=== PATIENT | female | born 1960 | race Caucasian/White ===

== ENCOUNTER 2025-04-28 10:33 | Outpatient (CLI) | payer MEDICARE, BC | END 2025-04-28 10:34 | disposition home or self-care (01) | LOC: SCSMRI 10:33 | PROVIDERS: ATTEND Orthopaedic Surgery | DX: M75.101 Unspecified rotator cuff tear or rupture of right shoulder, not specified as traumatic (principal); M19.011 Primary osteoarthritis, right shoulder ==

== ENCOUNTER 2025-06-26 13:51 | Outpatient (CLI) | payer BC ==
[2025-06-26 15:34] LABS: #Basophils Less than 0.03 10x3/uL (0.0-0.2); #Eosinophils 0.06 10x3/uL (0.0-0.7); #Monocytes 0.40 10x3/uL (0.11-0.59); #Neutrophils 2.97 10x3/uL (1.40-6.50); %Basophils 0.4 % (0.0-1.0); %Eosinophils 1.2 % (0.0-10.0); %Lymphocytes 29.1 % (21.0-51.0); %Monocytes 8.2 % (0.0-10.0); %Neutrophils 60.9 % (42.0-75.0); Hematocrit 43.8 % (36.0-47.0); Hemoglobin 14.0 g/dL (12.0-16.0); Mean Corpuscular Hemoglobin 29.2 pg (27.0-31.0); Mean Corpuscular Volume 91.4 fL (78.0-98.0); Platelet Count 234 10x3/uL (130-400); Red Blood Cell (RBC) Count 4.79 mill/uL (4.20-5.40); White Blood Cell (WBC) Count 4.88 10x3/uL (4.8-10.8)
[2025-06-26 15:55] LABS: ALT (SGPT) 12 U/L (Less than 34); AST (SGOT) 23 U/L (11-34); Albumin 4.1 g/dL (3.1-4.5); Alkaline Phosphatase 65 U/L (40-110); Anion Gap 9 mmol/L (10-20); BUN (Urea Nitrogen) 14 mg/dL (9.8-20.1); Bilirubin, Total 1.4 mg/dL (0.3-1.2); Calc. Creatinine Clearance 0 mL/min (70-130); Calcium 9.6 mg/dL (7.8-10.44); Carbon Dioxide 25 mmol/L (23-31); Chloride 109 mmol/L (98-107); Globulin 2.9 g/dL (2.4-3.5); Glucose 104 mg/dL (80-115); Potassium 4.1 mmol/L (3.5-5.1); Sodium 139 mmol/L (136-145)
[2025-06-26 16:02] LABS: INR-International Normal Ratio 1.0; Prothrombin Time 13.8 sec (12.0-14.7)
== END 2025-06-26 13:52 | disposition home or self-care (01) ==
LOC: LABBT 13:51
PROVIDERS: ATTEND Orthopaedic Surgery
DX: Z01.818 Encounter for other preprocedural examination (principal); M19.011 Primary osteoarthritis, right shoulder
CPT/HCPCS: 80053; 85025; 85610; 87081; 93005; 93010

== ENCOUNTER 2025-07-03 07:12 | Observation (INO) | payer MEDICARE, BC ==
[2025-06-26 14:09] VITALS: BMI 29.9
[2025-07-03] MEDS ORDERED: Ropivacaine 0.5% HCl/PF (150 MG/30 ML VIAL) ONE (08:43)
[2025-07-03] MEDS ORDERED: Ropivacaine 0.2% HCl/PF 20 ML ONE (08:43)
[2025-07-03] MEDS ORDERED: CEFAZOLIN 2 GM VIAL ONE (09:12)
[2025-07-03] MEDS ORDERED: Tranexamic Acid 1,000 MG/10 ML VIAL ONE (09:12)
[2025-07-03] MEDS ORDERED: Vancomycin HCl 1.5 GM VIAL ONE (09:13)
[2025-07-03] MEDS ORDERED: Famotidine/PF 20 mg/2ml Vial ONE (09:26)
[2025-07-03] MEDS ORDERED: Lidocaine 4% PF 5 ML AMP ONE ×2 (09:30→09:31)
[2025-07-03] MEDS ORDERED: Rocuronium Bromide 10 MG/ML (10ML VIAL) ONE (09:47)
[2025-07-03] MEDS ORDERED: Lidocaine 1% PF 5 ML VIAL ONE (09:47)
[2025-07-03] MEDS ORDERED: PROPOFOL 200 MG/20 ML VIAL ONE (09:47)
[2025-07-03] MEDS ORDERED: PHENYLEPHRINE-NS 100 MCG/ML 10 ML SYRINGE ONE (10:01)
[2025-07-03] MEDS ORDERED: Ropivacaine 0.2% 550 ML 550 ML NERVE BLCK SCH (10:15)
[2025-07-03] MEDS ORDERED: Ondansetron PF 4 MG/2 ML Vial IVP PRN ×2 (10:15→12:33)
[2025-07-03] MEDS ORDERED: HYDROcodone/Acetaminophen 10/325 mg Tablet PO PRN (10:15)
[2025-07-03] MEDS ORDERED: SUGAMMADEX SODIUM 200 MG/2 ML VIAL ONE (11:27)
[2025-07-03] MEDS ORDERED: HYDROmorphone 0.5 MG/0.5 ML SYRINGE ONE (12:12)
[2025-07-03] MEDS ORDERED: Bisacodyl 10 MG SUPP PR PRN (12:33)
[2025-07-03] MEDS ORDERED: Milk Of Magnesia 30 ML UDCUP PO PRN (12:33)
[2025-07-03] MEDS ORDERED: diphenhydrAMINE 50 MG/ML VIAL ONE (12:34)
[2025-07-03] MEDS: Ketorolac Tromethamine 30 MG (1 mL) VIAL IVP SCH ×2 (13:34→13:35)
[2025-07-03] MEDS: PNEUMOC 20-VAL CONJ-DIP CRM/PF 0.5 ML SYRINGE IM ONE (15:19)
[2025-07-03] MEDS ORDERED: Non-Formulary Item 1 EACH (Pregabalin [Lyrica] 100 MG Cap) PO SCH (21:00)
[2025-07-03] MEDS: Pregabalin 50 MG CAP PO SCH (22:04)
[2025-07-04] MEDS: HYDROcodone/Acetaminophen 10/325 mg Tablet PO PRN ×2 (03:40→08:13)
[2025-07-04] MEDS: Acetaminophen 325 MG TAB PO PRN (04:54)
[2025-07-04] MEDS: Pantoprazole 40 MG DR.TAB PO SCH (08:13)
[2025-07-04 12:15] VITALS: BP 121/73; TEMP 98
== END 2025-07-04 15:02 | disposition home or self-care (01) ==
LOC: SDC 07:12 → SURG B 12:49
PROVIDERS: ADMIT Orthopaedic Surgery; ATTEND Orthopaedic Surgery
PROC: 0RRJ00Z Replacement of Right Shoulder Joint with Reverse Ball and Socket Synthetic Substitute, Open Approach (ICD-10-PCS; principal; 2025-07-03)
PROC: 3E0T3BZ Introduction of Anesthetic Agent into Peripheral Nerves and Plexi, Percutaneous Approach (ICD-10-PCS; 2025-07-03)
DX: M19.011 Primary osteoarthritis, right shoulder (principal); Z90.49 Acquired absence of other specified parts of digestive tract; Z90.710 Acquired absence of both cervix and uterus; Z88.0 Allergy status to penicillin; Z88.2 Allergy status to sulfonamides; Z91.018 Allergy to other foods
CPT/HCPCS: 23472; 64416; 97110; 97116 ×2; 97530 ×2; 97535; A4306; C1776 ×4; J1100; J1171; J1200; J1308; J1885 ×2; J2003; J2704; J2795 ×3; J3010